=== PATIENT | female | born 1990 | race African-American/Black ===

== ENCOUNTER 2017-12-04 22:26 | Emergency (ER) | payer SELFPAY ==
[~2017-12-04] VITALS: Ht 162.6 cm; Wt 136.0 kg
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
[2017-12-05 02:26] VITALS: BP 145/85; PULSE 80; RESP 18; TEMP 98.7; O2SAT 99
[2017-12-05 06:24] VITALS: BP 142/82; PULSE 70; RESP 18; TEMP 98.6; O2SAT 100
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
--- NOTE | 2017-12-05 10:44 | PD ---
Physical Exam Time Seen by Provider: 10:44 Narrative Please refer to previous providers documentation for details surrounding the patient's current visit Data Data Last Documented VS Vital Signs Date Time Temp Pulse Resp B/P (MAP) Pulse Ox O2 Delivery O2 Flow Rate FiO2 12/05/17 06:24 98.6 70 18 142/82 (102) 100 Room Air Orders Orders Diet Regular Basic (12/05/17 Breakfast) ^ Other Nursing Orders (12/05/17 10:06) Ed Discharge Order (12/05/17 10:43) MDM Medical Record Reviewed: Yes Supervised Visit with TOMEKA: No Narrative Course Patient was medically cleared, seen and evaluated by psychiatry. Grijalva act has been lifted. Patient will be discharged home at this time with no further medical needs. Diagnosis Primary Impression: Adjustment disorder with mixed disturbance of emotions and conduct Referrals: [facility] (Out patient) call for appointment Medication Management Patient Instructions: General Instructions, Mood Disorders (ED) Departure Forms: Tests/Procedures Scripts No Active Prescriptions or Reported Meds Disposition: 01 DISCHARGE HOME Condition: Stable Lillie Lang Dec 05, 2017 10:44
== END 2017-12-05 11:55 | disposition home or self-care (01) ==
LOC: NEPJ 22:26
DX: F43.25 Adjustment disorder with mixed disturbance of emotions and conduct (principal)
CPT/HCPCS: 99284